=== PATIENT | female | born 1980 | race Caucasian/White ===

== ENCOUNTER 2021-11-14 09:11 | Emergency (ER) | payer OTHER, SELFPAY ==
[2021-11-14 09:32] VITALS: BP 134/64; PULSE 84; RESP 16; TEMP 36.7; O2SAT 99
--- NOTE | 2021-11-14 09:46 | ED.BACK ---
HPI - Back Pain/Injury General Chief Complaint: Back Pain/Injury Stated Complaint: lower back pain Time Seen by Provider: 11/14/21 09:45 Source: patient, RN notes reviewed and old records reviewed Mode of arrival: ambulatory Limitations: no limitations History of Present Illness HPI Narrative: 41-year-old female who presents to [facility] with complaints of right flank pain for the past 5 days. Patient recently had Covid and was treated with Paxlovid which caused her extreme diarrhea and she stopped it after taking the med for 2 days. Patient reports some urinary frequency denies any suprapubic pain or odorous urine.Patient denies any vaginal pain or discharge or any concern for STD's. Patient reports that she did take one dose of AZO during the night. MD elicited complaint: other (Right flank throbbing) Onset (ago): day(s) (5) Timing: progressively worsening Treatments prior to arrival: other (Azo one dose during the night) Work related injury: No Related Data Allergies Allergy/AdvReac Type Severity Reaction Status Date / Time No Known Allergies Allergy Verified 11/14/21 09:35 Review of Systems Review of Systems: CONSTITUTIONAL: Denies fever, chills, or sweats. EYES: Denies visual changes, redness, or discharge. ENT: Denies rhinorrhea, congestion, sore throat, or otalgia. CARDIOVASCULAR: Denies chest pain, palpitations, or edema. RESPIRATORY: Denies cough or dyspnea. GASTROINTESTINAL: Denies abdominal pain, nausea, vomiting, or diarrhea. GENITOURINARY: Denies dysuria or hematuria.states some frequency SKIN: Denies rash or itching. MUSCULOSKELETAL:Positive for right flank area back pain, joint pain, or myalgia. NEUROLOGIC: Denies headache, numbness, or weakness. PSYCHIATRIC: Denies anxiety or depression. All systems reviewed & are unremarkable except as noted in HPI and below PMFSH Past Medical History Medical History (Updated 11/15/21 @ 16:17 by Mallika Naylor NP) Obesity Surgical History Surgical History (Updated 11/14/21 @ 10:03 by Mallika Naylor NP) H/O gastric sleeve Social History Social History (Updated 11/14/21 @ 10:04 by Mallika Naylor NP) Smoking status: Never smoker Alcohol intake: never Substance use type: does not use Living arrangements: with family Gender identity (if verbalized by the patient): Female Comments At time of signature, agree with nursing past medical, surgical, social and family history. There is no relevant family history pertinent to the presenting complaint Exam Narrative: GENERAL: Well-appearing, well-nourished, obese,and in no acute distress. HEAD: Normocephalic, atraumatic. EYES: PERRLA and EOMI. ENT: Nares clear, no rhinorrhea or epistaxis. Mucous membranes moist.TM's normal, throat pink with no swelling NECK: Supple.no lymphadenopathy CHEST: Clear to auscultation. No respiratory distress. HEART: Regular rate and rhythm. No murmur heard. Normal peripheral pulses. ABDOMEN: Soft, nontender, nondistended, normal active bowel sounds.positive for right flank pain EXTREMITIES: Normal range of motion. No edema. SKIN: Warm, dry, no rash. NEURO: No focal deficits. Alert and oriented x3. Course Course Level of Care: Express Care Visit Vital Signs Vital signs: Vital Signs Temperature 36.7 C 11/14/21 09:32 Pulse Rate 84 11/14/21 09:32 Respiratory Rate 16 11/14/21 09:32 Blood Pressure 134/64 11/14/21 09:32 Pulse Oximetry 99 11/14/21 09:32 Oxygen Delivery Room Air 11/14/21 09:32 Temperature 36.7 C 11/14/21 09:32 Pulse Rate 84 11/14/21 09:32 Respiratory Rate 16 11/14/21 09:32 Blood Pressure 134/64 11/14/21 09:32 Pulse Oximetry 99 11/14/21 09:32 Oxygen Delivery Room Air 11/14/21 09:32 MDM - Back Pain/Injury MDM Narrative Medical decision making narrative: Patient instructed that if symptoms increase to go to ED for further evaluation of possible kidney stone, understanding voiced and agreeable. Sagar
== END 2021-11-14 10:07 | disposition home or self-care (01) ==
PROVIDERS: Emergency Provider Registered Nurse
DX: N39.0 Urinary tract infection, site not specified (principal); E66.9 Obesity, unspecified; Z68.41 Body mass index [BMI] 40.0-44.9, adult
CPT/HCPCS: 81003; 87086; 87088; 99213; G0463